=== PATIENT | male | born 1950 | race African-American/Black ===

== ENCOUNTER 2018-07-13 19:47 | Emergency (ER) | payer MEDICARE, MEDICAID ==
[~2018-07-13] VITALS: Ht 170.2 cm; Wt 64.9 kg
--- NOTE | 2018-07-13 19:51 | NUR ---
BIB EMS. PT CAME FROM HOME WITH CHEST PAIN RADIATING TO LEFT SHOULDER. PT HAS CARDIAC HX. PT STATES STABBING PAIN, ONSET WHILE AT REST. PT TOOK 1 NITRO TAB AT HOME. PT RECIEVED X2 MORE TABS FROM EMS. UPON ARRIVAL, PT STATES SOB. PLACED ON O2. VSS. POSITIONED IN BED WITH HOB ELEVATED. AT BEDISIDE. ER MD AWARE. CONTINUE TO MONITOR.
--- NOTE | 2018-07-13 19:51 | NUR ---
[facility] TO ER BED 12
[2018-07-13 20:05] VITALS: BP 126/90
[2018-07-13] MEDS ORDERED: NITROGLYCERIN 0.4 MG TAB SL ONE (20:15)
[2018-07-13] MEDS ORDERED: ASPIRIN 325 MG TAB PO ONE (20:15)
[2018-07-13 20:25] LABS: BASOPHILS % (AUTO) 0.3 % (0.0-2.0); EOSINOPHILS # (AUTO) 0.1 K/uL (0-0.4); EOSINOPHILS % (AUTO) 0.7 % (0.0-4.0); HEMATOCRIT 41.6 % (36-52); HEMOGLOBIN 13.9 g/dL (12.0-18.0); LYMPHOCYTES # (AUTO) 3.2 K/uL (2.0-11.5); LYMPHOCYTES % (AUTO) 44.5 % (20.5-51.1); MEAN CORPUSCULAR HEMOGLOBIN 29 pg (27-31); MEAN CORPUSCULAR HGB CONC 33 g/dL (33-37); MEAN CORPUSCULAR VOLUME 86.3 fL (80-94); MONOCYTES # (AUTO) 0.9 K/uL (0.8-1.0); MONOCYTES % (AUTO) 12.1 % (1.7-9.3); NEUTROPHILS # (AUTO) 3.1 K/uL (1.8-7.7); NEUTROPHILS % (AUTO) 42.4 % (42.2-75.2); PLATELET COUNT (AUTO) 70 K/uL (140-450); RED BLOOD CELL COUNT(AUTO) 4.82 MIL/uL (4.20-6.10); RED CELL DISTRIBUTION WIDTH 17.9 % (11.6-13.7); WHITE BLOOD COUNT (AUTO) 7.2 K/uL (4.8-10.8)
--- NOTE | 2018-07-13 20:30 | NUR ---
PT IN BED WITH VSS. POSITIONED FOR COMFORT. AT BEDSIDE. CONTINUE TO MONITOR.
[2018-07-13 20:38] LABS: CARBON DIOXIDE 17.5 mmol/L (21-32); CREATININE 1.2 mg/dL (0.7-1.3); POTASSIUM 3.5 mmol/L (3.5-5.1)
[2018-07-13 20:44] LABS: ALBUMIN 2.6 g/dL (3.4-5.0); TOTAL BILIRUBIN 1.8 mg/dL (0.0-1.0)
[2018-07-13] MEDS ORDERED: MORPHINE SULFATE 4 MG/ML SYR IVP ONE ×2 (21:15→23:25)
--- NOTE | 2018-07-13 21:30 | NUR ---
PT IN BED WITH VSS. POSITIONED FOR COMFORT. AT BEDSIDE. CONTINUE TO MONITOR.
--- NOTE | 2018-07-13 22:30 | NUR ---
PT IN BED WITH VSS. POSITIONED FOR COMFORT. AT BEDSIDE. CONTINUE TO MONITOR.
--- NOTE | 2018-07-13 23:30 | NUR ---
PT IN BED WITH VSS. POSITIONED FOR COMFORT. AT BEDSIDE. CONTINUE TO MONITOR.
--- NOTE | 2018-07-13 23:48 | NUR ---
CALLED REPORT TO PATRICK ALONSO AT [facility]. [phone]
[2018-07-14 00:30] VITALS: BP 143/87
--- NOTE | 2018-07-14 00:30 | NUR ---
Patient to be transferred to [facility]. Is being transferred due to ACS workup. Receiving facility has accepting physician and available space. ER physician has signed transfer form. Patient or responsible libertarian has agreed to transfer and signed form. Patient belongings inventoried and will be sent with patient. Copy of nursing notes, lab reports, EKG, Physicians Orders and X-rays to be sent with patient. Report called to Joao at receiving facility. [facility] service has been called for transfer. transferred with vss.
--- NOTE | 2018-07-14 00:34 | NUR ---
[facility] HERE FOR PT PICKUP.
== END 2018-07-14 00:30 | disposition short-term general hospital (02) ==
LOC: MED 19:47
DX: R07.89 Other chest pain (principal); I10 Essential (primary) hypertension; Z86.73 Personal history of transient ischemic attack (TIA), and cerebral infarction without residual deficits; K74.60 Unspecified cirrhosis of liver
CPT/HCPCS: 36415; 71045; 76705; 80053; 83880; 84484; 85025; 85610; 85730; 93005; 96374; 96376; 99285; J2270; Q0092